=== PATIENT | female | born 1965 | race Caucasian/White ===

== ENCOUNTER 2016-11-30 19:52 | Emergency (ER) ==
[2016-11-30] MEDS ORDERED: PHENERGAN IV ONE (21:02)
[2016-11-30] MEDS ORDERED: SODIUM CHLORIDE 0.9% INJ ONE (21:02)
[2016-11-30] MEDS ORDERED: LR 1,000 ML IV PRN (21:02)
[2016-11-30] MEDS ORDERED: MORPHINE IV ONE ×2 (21:04→23:44)
[2016-11-30] MEDS ORDERED: LOMOTIL PO ONE (21:07)
--- NOTE | 2016-11-30 21:16 | PROVIDER DOCUMENTATION ---
HPI-General Adult - General Source: patient - History of Present Illness -Gen Adult Nature of Presenting Problems: PT IS A 51YOF PRESENTING TO THE ED C/O DIFFICULT URINATION. PT STATES SHE HAS A HX OF INTERSTITIAL CYSTITIS WITH A PROCEDURE DONE TO STRETCH HER BLADDER 7 MTHS PRIOR AND NO PROBLEMS SINCE. TODAY SHE BEGAN HAVING PAIN AND DIFFICULTY URINATING. SHE IS OUT OF HER PERIDIUM AND REFUSES TO STRETCH LEGS OUT TO PROPERLY EXAM. PT IS TENDER IN THE SUPRAPUBIC AREA BUT NO OTHER COMPLAINTS AT THIS TIME Location of Pain/Injury: reports: abdomen Pain Radiation: reports: no radiation Quality of Pain: reports: aching, cramping Severity: reports: moderate Onset/Duration: reports: 4-6 hours ago Timing: reports: still present Context/Activities at Onset: reports: light activity Modifying Factors: improves with: nothing Associated Symptoms: reports: genitourinary problems Similar Symptoms Previously?: Yes (HX OF IC) Recently seen or treated by another doctor?: No <Danna Curry - Last Filed: 11/30/16 23:45> <Gigi Garcia - Last Filed: 11/30/16 23:53> - General Chief Complaint: Nausea/Vomiting Stated Complaint: AB PAIN Time Seen by Provider: 11/30/16 20:55 Allergies/Adverse Reactions: Patient Allergies Allergy/AdvReac Type Severity Reaction Status Date / Time NSAIDS (Non-Steroidal Allergy Intermediate SHORTNESS Verified 06/04/16 07:24 Anti-Inflamma OF BREATH scopolamine Allergy Intermediate HIVES Verified 06/04/16 07:24 tramadol Allergy Mild VOMITING Verified 06/04/16 07:24 Home Medications: Home Medication List Medication Instructions Recorded Confirmed Last Taken Type Albuterol Sulfate [Proventil Hfa] 6.7 gm IH ORDERED 06/05/12 06/04/16 History Montelukast Sodium [Singulair] 10 mg PO DAILY 06/05/12 06/04/16 06/04/16 History Fluticasone/Salmet 250/50 INH 1 puff INH RTBID 11/28/12 06/04/16 06/04/16 History [Advair 250/50 Diskus] Omeprazole [Prilosec] 20 mg PO QAM 05/07/15 06/04/16 06/04/16 History Amlodipine Besylate [Norvasc] 10 mg PO DAILY 05/23/15 06/04/16 06/04/16 History Pentosan [Elmiron] 100 mg BID 05/23/15 06/04/16 06/04/16 History Phenazopyridine HCl [Pyridium] 100 mg PO TID #6 tablet 01/28/16 06/04/16 Rx Ondansetron [Zofran Odt] 4 mg PO Q6-8H PRN PRN #20 02/21/16 06/04/16 06/04/16 Rx tab.rapdis Lisinopril 40 mg PO DAILY 04/26/16 06/04/16 06/04/16 History Cyclobenzaprine HCl [Flexeril] 5 mg PO HS #20 tablet 06/04/16 Unknown Rx Hydrocodone/Acetaminophen [Gladstone 1 each PO BID PRN #10 tablet 06/04/16 Unknown Rx 7.5-325 Tablet] Methen/Sod Phos/Meth Blue/Hyos 1 each PO Q6-8H PRN PRN #30 tablet 11/30/16 Unknown Rx [Urogesic-Blue Tablet] Oxycodone HCl/Acetaminophen 1 each PO Q4-6H PRN PRN #18 tablet 11/30/16 Unknown Rx [Percocet 5-325 mg Tablet] Promethazine [Phenergan] 1 - 2 tab PO Q6H PRN PRN #18 tablet 11/30/16 Unknown Rx Review of Systems - Adult - REVIEW OF SYSTEMS - ADULT Constitutional: reports: no symptoms reported Eyes: reports: no symptoms reported Ears, Nose, Mouth & Throat: reports: no symptoms reported Cardiovascular: reports: no symptoms reported Respiratory: reports: no symptoms reported Gastrointestinal: reports: see HPI, abdominal pain. denies: nausea, vomiting Genitourinary: reports: see HPI, frequency, urinary retention, urgency. denies : hematuria Musculoskeletal: reports: no symptoms reported Integumentary: reports: no symptoms reported Neurological: reports: no symptoms reported Psychiatric: reports: no symptoms reported Endocrine: reports: no symptoms reported Hematologic/Lymphatic: reports: no symptoms reported Allergic/Immunologic: reports: no symptoms reported All Other Systems: Reviewed and Negative <Danna Curry - Last Filed: 11/30/16 23:45> Past History - Adult - PAST MEDICAL HISTORY-ADULT Review of Records: reports: Old Records Reviewed, Nursing Assessment Review, Medications Reviewed, Social history reviewed & non-contributory. Major Childhood Illnesses: reports: denies history Cardiovascular: reports: HTN Respiratory: reports: asthma Gastrointestinal: reports: denies history Obstetrical/Gynecological: reports: denies history Genitourinary: reports: kidney stones, retention, other (IC) Musculoskeletal: reports: denies history Neurological: reports: denies history Endocrine/Immune: reports: denies history Other Conditions: reports: denies history - PRIOR SURGERIES/PROCEDURES Surgical/Procedure History: reports: hysterectomy, BTL, breast, other - IMMUNIZATION STATUS Childhood Immunizations: See Nurse Assessment Flu Vaccine: See Nurse Assessment - FAMILY HISTORY Family History: reviewed, not pertinent - SOCIAL HISTORY Smoking: denies, non-smoker Substance Use: none/never, denies Alcohol Use Frequency: never Living Situation: family <Danna Curry - Last Filed: 11/30/16 23:45> Physical Exam-General - PHYSICAL EXAM-ADULT Initial Vital Signs Reviewed: Yes - CONSTITUTIONAL General Appearance: appears well, alert, moderate distress, anxious, obtunded - EYES Eyes: PERRL/EOMI, pink conjunctivae, fundi clear, no AV nicking - HEAD, EARS, NOSE, MOUTH & THROAT HENMT: normocephalic/atraumatic, moist mucous membranes, normal ENT inspection, TMs normal, pharynx normal - NECK Neck: non-tender, full range of motion, supple, normal inspection - RESPIRATORY Respiratory: chest non-tender, lungs clear, normal breath sounds, no pleuratic chest pain, no respiratory distress, no accessory muscle use - CARDIOVASCULAR Cardiovascular: normal peripheral pulses, regular rate, rhythm, no edema, no gallop, no JVD, no murmur - GASTROINTESTINAL (ABDOMEN) Abdominal Exam: normal bowel sounds, soft, no organomegaly, no pulsatile mass, tenderness (SUPRAPUBIC). 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 as tested, grossly normal, no motor/sensory deficits - PSYCHIATRIC Psych/Mental Status: normal thought content, normal thought process, oriented x 3, anxious, disheveled, paranoid <Danna Curry - Last Filed: 11/30/16 23:45> Progress - PLAN OF CARE/RESULTS Progress/Plan/Lab Results: Laboratory Tests 11/30/16 20:18 Urine Source CATH Urine Color YELLOW Urine Clarity CLEAR Urine pH 6.5 Ur Specific Braham 1.010 Urine Protein 1+(30 mg/dL) A Urine Ketones 2+(Moderate) A Urine Blood 2+ A Urine Nitrite NEGATIVE Urine Bilirubin NEGATIVE Urine Urobilinogen NORMAL Urine Microscopic RBC 10-20 A Urine WBC NEGATIVE Urine Microscopic WBC <10 Ur Epithelial Cells <10 Urine Bacteria 1+ Urine Casts GRANULAR PRESENT Urine Glucose NEGATIVE Orders Category Date Time Status Loving Cath Insertion ORDERED Care 11/30/16 21:01 Active Loving [Home with Leg Bag] DIRECTED Care 11/30/16 23:[address] W/POSS RFLX CULT [URINALYSIS] Stat Lab 11/30/16 20:18 Completed Diphenoxylate/Atropine [Lomotil] Med 11/30/16 21:07 Discontinued 2 each PO NOW ONE Lactated Ringers Inj [Lr] 1,000 ml Med 11/30/16 21:02 Active IV 500 mls/hr Morphine Med 11/30/16 21:04 Discontinued 4 mg IV NOW ONE Morphine Med 11/30/16 23:44 Discontinued 4 mg IV NOW ONE Phenazopyridine [Pyridium] Med 11/30/16 23:44 Discontinued 200 mg PO NOW ONE Promethazine [Phenergan] Med 11/30/16 21:02 Discontinued 25 mg IV NOW ONE Sodium Chloride 0.9% Med 11/30/16 21:02 Discontinued 10 ml INJ NOW ONE Vital Signs - 24 hr 11/30/16 11/30/16 20:02 20:12 Temperature 98.2 F Pulse Rate 146 H Pulse Rate [ 139 H Sitting] Pulse Rate [ 148 H Standing] Pulse Rate [ 131 H Supine] Respiratory 20 Rate Blood Pressure 143/90 Blood Pressure 131/97 [Sitting] Blood Pressure 136/107 [Standing] Blood Pressure 144/99 [Supine] O2 Sat by Pulse 100 Oximetry <Danna Curry - Last Filed: 11/30/16 23:45> Departure - Departure Time of Disposition Order: 23:46 Certified Medical Emergency: Emergent <Danna Curry - Last Filed: 11/30/16 23:45> - Departure Time of Disposition Order: 23:53 Certified Medical Emergency: Emergent <Gigi Garcia - Last Filed: 11/30/16 23:53> - Departure DIAGNOSIS: Interstitial cystitis (chronic) with hematuria Disposition: HOME 01 Condition: Good Additional Instructions: CALL UROLOGIST FOR APPOINTMENT SOON POSSIBLE FOR SYMPTOMS AND REMOVAL CATHETER Prescriptions: Oxycodone HCl/Acetaminophen [Percocet 5-325 mg Tablet] 1 each PO Q4-6H PRN PRN # 18 tablet PRN Reason: Pain Promethazine [Phenergan] 1 - 2 tab PO Q6H PRN PRN #18 tablet PRN Reason: Vomiting Methen/Sod Phos/Meth Blue/Hyos [Urogesic-Blue Tablet] 1 each PO Q6-8H PRN PRN # 30 tablet PRN Reason: Spasms Referrals: Alfonso Antonio DO [STAFF PHYSICIAN] - None,PCP [Primary Care Provider] - Johnie Acosta MD [STAFF PHYSICIAN] - Attestation - Scribe Verification/Attestation Scribe:: Danna Curry Acting as Scribe for:: Gigi Garcia Scribe documention review:: This chart was documented by a scribe and accurately reflects the service the provider performed and the decisions made by the provider. <Danna Curry - Last Filed: 11/30/16 23:45> Physician Attestation - Physician Attestation I, the provider, attest to the following statement:: Gigi Garcia Physician documentation Attestation:: This documentation recorded by the scribe accurately reflects the service I personally performed and the decisions made by me. <Danna Curry - Last Filed: 11/30/16 23:45>
[2016-11-30 22:26] LABS: URINE CULTURE PL NEEDED? NO; URINE SOURCE CATH
[2016-11-30 22:35] LABS: BILIRUBIN URINE NEGATIVE (NEGATIVE); BLOOD URINE 2+ (NEGATIVE); CLARITY CLEAR (CLEAR); COLOR YELLOW; GLUCOSE URINE NEGATIVE (NEGATIVE); LEUKOCYTES URINE NEGATIVE (NEGATIVE); NITRITE URINE NEGATIVE (NEGATIVE); PH URINE 6.5; PROTEIN URINE 1+(30 mg/dL) mg/dL (NEGATIVE); UROBILINOGEN URINE NORMAL
[2016-11-30 22:55] LABS: URINE CAST GRANULAR PRESENT /LPF; URINE EPITHELIAL CELLS <10 /HPF (<10); URINE WBC <10 /HPF (<10)
[2016-11-30] MEDS ORDERED: PYRIDIUM PO ONE (23:44)
[2016-12-01 00:15] VITALS: BP 134/071
== END 2016-12-01 00:13 | disposition home or self-care (01) ==
LOC: P.ED 19:52
DX: N30.11 Interstitial cystitis (chronic) with hematuria (principal); R33.9 Retention of urine, unspecified; R35.0 Frequency of micturition; R39.15 Urgency of urination; R10.819 Abdominal tenderness, unspecified site; I10 Essential (primary) hypertension; J45.909 Unspecified asthma, uncomplicated; Z79.899 Other long term (current) drug therapy; Z87.442 Personal history of urinary calculi
CPT/HCPCS: 51702; 81001; 96361; 96374; 96375; 96376; J2270; J2550; J7120